=== PATIENT | male | born 1990 | race Caucasian/White ===

== ENCOUNTER 2021-08-11 10:36 | Emergency (ER) | payer OTHER ==
[2021-08-11 10:55] VITALS: BP 119/78
--- NOTE | 2021-08-11 11:00 | ED Physician Documentation ---
PD HPI WOUND RECHECK - Stated complaint Stated Complaint: LT HAND BURN - Chief complaint Chief Complaint: Burn - Histroy obtained from History obtained from: Patient - History of Present Illness Location: Left Hand (burn of left palm at work 13 days ago, with subsequent blister that he left intact for several days until it started to peel on its own then he removed the roof. No infection. Has healed well. 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 work.) Timing - onset: How many days ago (13) Associated symptoms: No: Fever, Redness Similar symptoms before: Has not had sx before Review of Systems Constitutional: denies: Fever, Chills Nose: denies: Rhinorrhea / runny nose, Congestion Throat: denies: Sore throat Respiratory: denies: Cough Neurologic: denies: Focal weakness, Numbness PD PAST MEDICAL HISTORY - Past Medical History Cardiovascular: None Neuro: None Endocrine/Autoimmune: None - Allergies Allergies/Adverse Reactions: Allergies Allergy/AdvReac Type Severity Reaction Status Date / Time No Known Drug Allergies Allergy Verified 08/11/21 10:55 PD ED PE NORMAL - Vitals Vital signs reviewed: Yes - General General: Alert and oriented X 3, No acute distress, Well developed/nourished - Derm Derm: Normal color, Warm and dry - Extremities Extremities: Other (left palm on hypothenar area with well healing rounded area of pinkish skin c/w partial thickness burn that has peeled. No signs of infection. ) - Neuro Neuro: Alert and oriented X 3, No motor deficit, No sensory deficit, Normal speech Results - Vitals Vitals: Vital Signs - 24 hr 08/11/21 10:50 Temperature 36.6 C Heart Rate 82 Respiratory 16 Rate Blood Pressure 119/78 O2 Saturation 99 Oxygen O2 Source Room air PD MEDICAL DECISION MAKING - ED course Complexity details: considered differential (appears well healing burn. No infection. He would be okay to be at work (and would have been able prior to this as well). ) Departure - Departure Disposition: 01 Home, Self Care Clinical Impression: Burn of hand Qualifiers: Encounter type: initial encounter Burn of hand location: palm Laterality: left Burn degree: partial thickness (2nd degree) Qualified Code(s): T23.252A - Burn of second degree of left palm, initial encounter Instructions: ED Burn D 2nd Comments: Ears healing well without any infection or problems. Resume normal activity is fine. Forms: Activity restrictions Discharge Date/Time: 08/11/21 11:08
== END 2021-08-11 11:08 | disposition home or self-care (01) ==
LOC: ED 10:36
DX: Z02.79 Encounter for issue of other medical certificate (principal); T23.0 Burn of unspecified degree of wrist and hand; X15.8XXD Contact with other hot household appliances, subsequent encounter
CPT/HCPCS: 1040M; 99281; 99282